=== PATIENT | female | born 1955 | race Caucasian/White ===

== ENCOUNTER 2016-10-09 06:57 | Day surgery (SDC) | payer BC ==
[2016-10-09] MEDS ORDERED: Sodium Chloride 0.9% 20 ML ONE (07:30)
[2016-10-09] MEDS ORDERED: Lidocaine 2% 5 ML SDV ONE (07:30)
[2016-10-09] MEDS ORDERED: Propofol 200 MG/20 ML SDV ONE (07:30)
[2016-10-09] MEDS ORDERED: diphenhydrAMINE 50 MG/ML SDV ONE (07:30)
[2016-10-09] MEDS ORDERED: Midazolam 1 MG/ML 2 ML SDV ONE (07:30)
[2016-10-09] MEDS ORDERED: Bupivacaine 0.25%/EPINEPHrine 1:200,000 10 ML SDV ONE (07:34)
--- NOTE | 2016-10-09 07:51 | PCM.PREANE ---
Preanesthetic Assessment - Anesthesia/Transfusion/Family Hx Anesthesia History: No Prior Anesthesia Family History of Anesthesia Reaction: No Transfusion History: No Prior Transfusion(s) Intubation History: Unknown - Review of Systems General: No Symptoms Pulmonary: No Symptoms Cardiovascular: No Symptoms Gastrointestinal: No symptoms Neurological: No Symptoms Other: Reports: None - Physical Assessment O2 Sat by Pulse Oximetry: 10 Respiratory Rate: 16 Vital Signs: Last Vital Signs Temp 36.2 C 10/09/16 07:12 Pulse 63 10/09/16 07:12 Resp 16 10/09/16 07:12 BP 125/78 10/09/16 07:12 Pulse Ox 10 L 10/09/16 07:12 Height: 1.6 m Weight: 56.699 kg ASA Class: 2 Mental Status: Alert & Oriented x3 Airway Class: Mallampati = 2 Dentition: Reports: Normal Dentition, Bridge (left upper (back) recently broken and removed) Thyro-Mental Finger Breadths: 3 Mouth Opening Finger Breadths: 3 ROM/Head Extension: Full Lungs: Clear to auscultation, Normal respiratory effort Cardiovascular: Regular Rate, Regular Rhythm - Allergies Allergies/Adverse Reactions: Allergies Allergy/AdvReac Type Severity Reaction Status Date / Time No Known Allergies Allergy Verified 10/07/16 14:01 - Blood Blood Available: No - Anesthesia Plan Pre-Op Medication Ordered: None - Acknowledgements Anesthesia Type Planned: MAC Pt an Appropriate Candidate for the Planned Anesthesia: Yes Alternatives and Risks of Anesthesia Discussed w Pt/Guardian: Yes Pt/Guardian Understands and Agrees with Anesthesia Plan: Yes PreAnesthesia Questionnaire HEENT History: Reports: Other (See Below) Other HEENT History: wears glasses 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: Neurological History: Reports: Migraines Other Neuro History: migraines 30 yrs ago Endocrine/Metabolic History: Reports: Hypothyroidism - Past Surgical History Head Surgeries/Procedures: Reports: None HEENT Surgical History: Reports: Naso-Sinus Surgery Other HEENT Surgeries/Procedures: septoplasty under local in 1977 - SUBSTANCE USE Smoking Status *Q: Never Smoker Recreational Drug Use History: No - HOME MEDS Home Medications: Home Meds Levothyroxine Sodium [Synthroid] 75 mcg PO DAILY 10/07/16 [History] Spironolactone [Aldactone] 50 mg PO DAILY 10/07/16 [History] - CURRENT (IN HOUSE) MEDS Current Meds: Current Medications Hydrocodone Bitart/Acetaminophen ([place] 325-5 Mg) 1 tab PO Q4H PRN PRN Reason: Pain Bupivacaine HCl/Epinephrine Bitart (Marcaine 0.25%/Epinephrine 1:200,000) 10 ml INJECT ONETIME ONE Stop: 10/09/16 08:01 Lactated Ringer's (Ringers, Lactated) 1,000 mls @ 125 mls/hr IV ASDIRECTED TRENT Last Admin: 10/09/16 07:20 Dose: 125 mls/hr Cefazolin Sodium/Dextrose 2 gm (/ Premix) 50 mls @ 100 mls/hr IV ONETIME ONE Stop: 10/09/16 08:29 Discontinued Medications Bupivacaine HCl/Epinephrine Bitart (Marcaine 0.25%/Epinephrine 1:200,000) Confirm Administered Dose 20 ml .ROUTE .STK-MED ONE Stop: 10/09/16 07:35 Diphenhydramine HCl (Benadryl) Confirm Administered Dose 50 mg .ROUTE .STK-MED ONE Stop: 10/09/16 07:31 Sodium Chloride (Normal Saline) Confirm Administered Dose 20 mls @ as directed .ROUTE .STK-MED ONE Stop: 10/09/16 07:31 Lidocaine (Xylocaine-Mpf 2%) Confirm Administered Dose 5 ml .ROUTE .STK-MED ONE Stop: 10/09/16 07:31 Midazolam HCl (Versed 1 Mg/Ml) Confirm Administered Dose 2 mg .ROUTE .STK-MED ONE Stop: 10/09/16 07:31 Propofol (Diprivan 20 Ml) Confirm Administered Dose 200 mg .ROUTE .STK-MED ONE Stop: 10/09/16 07:31 Sufentanil Citrate (Sufentanil Citrate) Confirm Administered Dose 50 mcg .ROUTE .STK-MED ONE Stop: 10/09/16 07:35
[2016-10-09] MEDS ORDERED: Bupivacaine 0.25%/EPINEPHrine 1:200,000 10 ML SDV INJECT ONE (08:00)
[2016-10-09] MEDS ORDERED: ceFAZolin 2 GM in Premix Bag 1 BAG IV ONE (08:00)
[2016-10-09] MEDS ORDERED: Acetaminophen/HYDROcodone 325-5 MG Tab PO PRN (08:00)
[2016-10-09] MEDS ORDERED: Lactated Ringers 1,000 ML IV SCH (08:00)
[2016-10-09] MEDS ORDERED: Ondansetron 4 MG/2 ML SDV ONE (08:53)
[2016-10-09] MEDS ORDERED: Dexamethasone 4 MG/ML 5 ML MDV ONE (09:00)
[2016-10-09] MEDS ORDERED: Ketorolac 30 MG/ML SDV ONE (09:01)
--- NOTE | 2016-10-09 10:17 | PCM48HPAN ---
Post Anesthesia Note - EVALUATION WITHIN 48HRS OF ANESTHETIC Vital Signs in Normal Range: Yes Patient Participated in Evaluation: Yes Respiratory Function Stable: Yes Airway Patent: Yes Cardiovascular Function Stable: Yes Hydration Status Stable: Yes Pain Control Satisfactory: Yes Nausea and Vomiting Control Satisfactory: Yes Mental Status Recovered: Yes - COMMENTS/OBSERVATIONS Free Text/Narrative:: no anesthesia problems. Patient skipped recovery room phase of postoperative care
[2016-10-09 10:34] VITALS: BP 102/69
--- NOTE | 2016-10-12 12:22 | PCM.OPNOTE ---
- General Post-Op/Procedure Note Date of Surgery/Procedure: 10/12/16 Operative Procedure(s): excision of right small finger ganglion and intermediate repair of revision of forehead scar 4cm Pre Op Diagnosis: right small finger ganglion and forehead scar Post-Op Diagnosis: Same Anesthesia Technique: Local, MAC Primary Surgeon: Kim Puga Iron Piler: Karla Noel Complications: None Condition: Good
--- NOTE | 2016-10-12 20:28 | OR ---
SURGEON: MAURO SERRANO MD DATE OF PROCEDURE: 10/09/2016 PREOPERATIVE DIAGNOSES: Right small finger ganglion cyst at the PIP joint and scar of the forehead. POSTOPERATIVE DIAGNOSES: Right small finger ganglion cyst at the PIP joint and scar of the forehead. PROCEDURE: 1. Excision of right small finger ganglion cyst at the PIP joint. 2. Scar revision, intermediate repair 4 cm face. KOSHER BUTCHER: Karla Noel. INDICATIONS: Ms. Hassan is a 61-year-old female seen today for scar of her forehead and right small finger ganglion. Risks and benefits of excision and revision of the scar were discussed with her and she was in agreement to proceed. Risks were including, but not limited to, bleeding, infection, damage to underlying or overlying structures, possible need for future interventions, and possible scarring. PROCEDURE IN DETAILS: After informed consent was obtained and placed on the chart, the patient was brought to the operating theater and laid in the supine position. After adequate local MAC anesthetic was obtained, the area was prepped and draped in normal fashion. A time-out was completed to confirm side and site. Attention was then paid to excision of the right small finger ganglion cyst under local tourniquet. Dissection was carried down to the PIP joint and the cyst was removed en bloc. This was sent for pathology. Attention was then paid to rongeuring of the bony prominences causing the ganglion formation. Once this was smoothed, attention was paid to closure using a single deep 4-0 Monocryl stitch and a 5-0 nylon stitch for the skin. This was dressed with a Band-Aid. Attention was then paid to the forehead lesion which was excised and undermined minimally. Deep 4-0 Monocryl stitches and superficial 6-0 Prolene sutures were used to close the skin. This was dressed with Steri-Strips. The patient tolerated this well. All counts and needles were correct at the end the case for a total length of laceration closure of 4 cm. FOLLOWUP INSTRUCTIONS: The patient will see us in 10 to 14 days for suture removal sooner if any problems, questions, or concerns. NGUYỄN / MIRANDA /[id number] ALEXSANDRA
== END 2016-10-09 10:25 | disposition home or self-care (01) ==
LOC: MW.SDS 06:57
PROVIDERS: ATTEND Plastic Surgery
DX: M67.441 Ganglion, right hand (principal); L90.5 Scar conditions and fibrosis of skin; E03.9 Hypothyroidism, unspecified; Z79.899 Other long term (current) drug therapy
CPT/HCPCS: 11444; 12052; 26160; 88304; J0690; J1100; J1200; J1885; J2250; J2405; J7120; 00300; J2704

== ENCOUNTER 2018-07-22 07:00 | Day surgery (SDC) | payer BC ==
[~2018-07-22 07:00] MED LIST: Lactated Ringers 1,000 ML IV SCH; ceFAZolin 1 GM in Premix Bag 1 BAG IV ONE
[2018-07-22] MEDS ORDERED: Midazolam 1 MG/ML 2 ML SDV ONE (07:18)
[2018-07-22] MEDS ORDERED: Propofol 200 MG/20 ML SDV ONE (07:18)
[2018-07-22] MEDS ORDERED: Lidocaine 2% 5 ML SDV ONE (07:18)
[2018-07-22] MEDS ORDERED: fentaNYL 100 MCG/2 ML SDV ONE (07:18)
[2018-07-22] MEDS ORDERED: Bupivacaine 0.25%/EPINEPHrine 1:200,000 10 ML SDV ONE (07:23)
--- NOTE | 2018-07-22 07:26 | PCM.PREANE ---
Preanesthetic Assessment - Anesthesia/Transfusion/Family Hx Anesthesia History: Prior Anesthesia Without Reaction Family History of Anesthesia Reaction: No Transfusion History: No Prior Transfusion(s) Intubation History: Unknown - Review of Systems General: No Symptoms Pulmonary: No Symptoms Cardiovascular: No Symptoms Gastrointestinal: No Symptoms Neurological: No Symptoms Other: Reports: None - Physical Assessment NPO Status Date: 07/21/18 O2 Sat by Pulse Oximetry: 99 Respiratory Rate: 16 Vital Signs: Last Vital Signs Temp 97.0 F 07/22/18 07:18 Pulse 66 07/22/18 07:18 Resp 16 07/22/18 07:18 BP 120/58 L 07/22/18 07:18 Pulse Ox 99 07/22/18 07:18 Height: 5 ft 3 in Weight: 60.781 kg ASA Class: 2 Mental Status: Alert & Oriented x3 Airway Class: Mallampati = 1 Dentition: Reports: Implants (loose crown on an implant L mandibular lateral) ROM/Head Extension: Full Lungs: Clear to Auscultation, Normal Respiratory Effort Cardiovascular: Regular Rate, Regular Rhythm - Allergies Allergies/Adverse Reactions: Allergies Allergy/AdvReac Type Severity Reaction Status Date / Time No Known Allergies Allergy Verified 07/21/18 11:38 - Blood Blood Available: No - Anesthesia Plan Pre-Op Medication Ordered: None - Acknowledgements Anesthesia Type Planned: MAC Pt an Appropriate Candidate for the Planned Anesthesia: Yes Alternatives and Risks of Anesthesia Discussed w Pt/Guardian: Yes Pt/Guardian Understands and Agrees with Anesthesia Plan: Yes PreAnesthesia Questionnaire HEENT History: Reports: Other (See Below) Other HEENT History: wears glasses Cardiovascular History: Reports: None Respiratory History: Reports: None Gastrointestinal History: Reports: None Genitourinary History: Reports: None 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: Musculoskeletal History: Reports: Fracture Other Musculoskeletal History: fx bone in left hand in 2013 Neurological History: Reports: Migraines Psychiatric History: Reports: None Endocrine/Metabolic History: Reports: Hypothyroidism Hematologic History: Reports: None Immunologic History: Reports: None Oncologic (Cancer) History: Reports: None Dermatologic History: Reports: None - Past Surgical History Head Surgeries/Procedures: Reports: None HEENT Surgical History: Reports: Naso-Sinus Surgery Other HEENT Surgeries/Procedures: septoplasty under local in 1977 Cardiovascular Surgical History: Reports: None Respiratory Surgical History: Reports: None GI Surgical History: Reports: None Female Surgical History: Reports: Breast Biopsy Endocrine Surgical History: Reports: None Neurological Surgical History: Reports: None Musculoskeletal Surgical History: Reports: Other (See Below) Other Musculoskeletal Surgeries/Procedures:: surgery on rt pinky finger Oncologic Surgical History: Reports: Biopsy of Breast Dermatological Surgical History: Reports: Other (See Below) - SUBSTANCE USE Smoking Status *Q: Never Smoker Recreational Drug Use History: No - HOME MEDS Home Medications: Home Meds Levothyroxine Sodium [Synthroid] 75 mcg PO BEDTIME 10/07/16 [History] - CURRENT (IN HOUSE) MEDS Current Meds: Current Medications Bupivacaine HCl/Epinephrine Bitart (Marcaine 0.25%/Epinephrine 1:200,000) 10 ml INJECT ONETIME ONE Stop: 07/22/18 08:01 Lactated Ringer's (Ringers, Lactated) 1,000 mls @ 125 mls/hr IV ASDIRECTED TRENT Last Admin: 07/22/18 07:25 Dose: 125 mls/hr Discontinued Medications Fentanyl (Sublimaze) Confirm Administered Dose 100 mcg .ROUTE .STK-MED ONE Stop: 07/22/18 07:19 Cefazolin Sodium/Dextrose 1 gm (/ Premix) 50 mls @ 100 mls/hr IV ONETIME ONE Stop: 07/21/18 23:03 Lidocaine (Xylocaine-Mpf 2%) Confirm Administered Dose 5 ml .ROUTE .STK-MED ONE Stop: 07/22/18 07:19 Midazolam HCl (Versed 1 Mg/Ml) Confirm Administered Dose 2 mg .ROUTE .STK-MED ONE Stop: 07/22/18 07:19 Propofol (Diprivan 20 Ml) Confirm Administered Dose 200 mg .ROUTE .STK-MED ONE Stop: 07/22/18 07:19
[2018-07-22] MEDS ORDERED: Bupivacaine 0.25%/EPINEPHrine 1:200,000 10 ML SDV INJECT ONE (08:00)
[2018-07-22] MEDS ORDERED: Ondansetron 4 MG/2 ML SDV ONE (08:40)
--- NOTE | 2018-07-22 09:24 | PCM48HPAN ---
Post Anesthesia Note - EVALUATION WITHIN 48HRS OF ANESTHETIC Vital Signs in Normal Range: Yes Patient Participated in Evaluation: Yes Respiratory Function Stable: Yes Airway Patent: Yes Cardiovascular Function Stable: Yes Hydration Status Stable: Yes Pain Control Satisfactory: Yes Nausea and Vomiting Control Satisfactory: Yes Mental Status Recovered: Yes Resp Rate: 16
[2018-07-22 09:37] VITALS: BP 108/54
--- NOTE | 2018-07-22 16:02 | PCM.OPNOTE ---
- General Post-Op/Procedure Note Date of Surgery/Procedure: 07/22/18 Operative Procedure(s): excision of left middle finger distal interphalangeal joint ganglion Pre Op Diagnosis: left middle finger joint ganglion Post-Op Diagnosis: Same Anesthesia Technique: Local, MAC Primary Surgeon: Kim Puga Sausage Smoker: Karla Noel Complications: None Condition: Good
--- NOTE | 2018-07-25 01:11 | OR ---
SURGEON: KIM PUGA MD DATE OF PROCEDURE: 07/22/2018 PREOPERATIVE DIAGNOSIS: Left middle finger joint ganglion at the DIP joint. POSTOPERATIVE DIAGNOSIS: Left middle finger joint ganglion at the DIP joint. PROCEDURE: Excision of left middle finger distal interphalangeal joint ganglion. PRIMARY SURGEON: Kim Puga MD TURKEY CLEANER: HAO Negro ANESTHESIA: Local with MAC. REASON FOR AND ROLE OF TURKEY CLEANER: Retraction, prepping, draping, positioning and closure assistance. INDICATIONS: Ms. Hassan is a 62-year-old female seen in evaluation for left middle finger distal interphalangeal joint ganglion that has ruptured through the skin and caused chronic inflammation. Risks and benefits of removal were discussed with her including, but not limited to, bleeding, infection, damage to underlying or overlying structures, possible need for future interventions, and possible scarring. PROCEDURE IN DETAIL: After informed consent was obtained and placed on the chart, the patient was brought to the operating theater and laid in the supine position. After adequate local MAC anesthesia was obtained, the arm was exsanguinated, and the tourniquet was insufflated to 200 mmHg after a time-out had been completed to confirm side and site. Attention was paid to an elliptical incision greater on the open area. Dissection was then carried down in an inverted L-type fashion down to the distal interphalangeal joint. Care was taken to protect the extensor tendon mechanism, and the lateral aspect of the joint was entered. The ganglion itself was dissected and tracked down to its joint insertion, and the area there was then rongeured for any free floating bone changes. Once this was completed, the area was copiously irrigated, and the lateral aspect of the joint was reapproximated using a 4-0 Monocryl stitch in an interrupted fashion. The skin was then closed using 5-0 chromic in an interrupted fashion. The wound was dressed with Xeroform, fluffs, and a Kerlix gauze dressing. The patient tolerated this well. All counts and needles were correct at the end of the case. FOLLOWUP INSTRUCTIONS: The patient will see us in clinic in approximately 10 days or sooner if there are any problems, questions, or concerns. HEGGTHE / MODL /[id number] MTDD
== END 2018-07-22 09:51 | disposition home or self-care (01) ==
LOC: MW.SDS 07:00
PROVIDERS: ATTEND Plastic Surgery
DX: M67.442 Ganglion, left hand (principal); E03.9 Hypothyroidism, unspecified; Z79.899 Other long term (current) drug therapy
CPT/HCPCS: J0690; J2001; J2250; J2405; J2704; J3010; J3490; J7120

== ENCOUNTER 2020-01-01 06:39 | Day surgery (SDC) | payer BC ==
[2019-12-31 17:36] LABS: CARBON DIOXIDE,CO2 27.1 mmol/L (21.0-32.0); POTASSIUM,K 4.2 mmol/L (3.5-5.1)
[2020-01-01] MEDS ORDERED: Bupivacaine 0.25% 10 ML SDV ONE (07:19)
--- NOTE | 2020-01-01 07:20 | PCM.PREANE ---
Preanesthetic Assessment - Anesthesia/Transfusion/Family Hx Anesthesia History: Prior Anesthesia Without Reaction Transfusion History: No Prior Transfusion(s) Intubation History: Unknown - Review of Systems General: No Symptoms Pulmonary: No Symptoms Cardiovascular: No Symptoms Gastrointestinal: No Symptoms Neurological: No Symptoms Other: Reports: None - Physical Assessment Vital Signs: Last Vital Signs Temp 97.5 F 01/01/20 06:56 Pulse 71 01/01/20 06:56 Resp 14 01/01/20 06:56 BP 109/58 L 01/01/20 06:56 Pulse Ox 98 01/01/20 06:56 Height: 5 ft 2.5 in Weight: 64.41 kg ASA Class: 2 Mental Status: Alert & Oriented x3 Airway Class: Mallampati = 1 Dentition: Reports: Bridge (Missing), Missing Tooth/Teeth Thyro-Mental Finger Breadths: 2 Mouth Opening Finger Breadths: 3 ROM/Head Extension: Full Lungs: Clear to Auscultation, Normal Respiratory Effort Cardiovascular: Regular Rate, Regular Rhythm - Lab Values: Laboratory Last Values WBC 8.87 K/uL (4.0-11.0) 12/31/19 16:35 RBC 4.65 M/uL (4.30-5.90) 12/31/19 16:35 Hgb 14.5 g/dL (12.0-16.0) 12/31/19 16:35 Hct 44.4 % (36.0-46.0) 12/31/19 16:35 MCV 95.5 fL (80.0-98.0) 12/31/19 16:35 MCH 31.2 pg (27.0-32.0) 12/31/19 16:35 MCHC 32.7 g/dL (31.0-37.0) 12/31/19 16:35 RDW Std Deviation 44.0 fl (28.0-62.0) 12/31/19 16:35 RDW Coeff of Sarah Beth 13 % (11.0-15.0) 12/31/19 16:35 Plt Count 274 K/uL (150-400) 12/31/19 16:35 MPV 10.70 fL (7.40-12.00) 12/31/19 16:35 Nucleated RBC % 0.0 /100WBC 12/31/19 16:35 Nucleated RBCs # 0 K/uL 12/31/19 16:35 Sodium 138 mmol/L (136-145) 12/31/19 16:35 Potassium 4.2 mmol/L (3.5-5.1) 12/31/19 16:35 Chloride 103 mmol/L (98-107) 12/31/19 16:35 Carbon Dioxide 27.1 mmol/L (21.0-32.0) 12/31/19 16:35 BUN 26 mg/dL (7.0-18.0) H 12/31/19 16:35 Creatinine 1.0 mg/dL (0.6-1.0) 12/31/19 16:35 Est Cr Clr Drug Dosing 45.38 mL/min 12/31/19 16:35 Estimated GFR (MDRD) 55.6 ml/min 12/31/19 16:35 Glucose 86 mg/dL (74-106) 12/31/19 16:35 Calcium 9.3 mg/dL (8.5-10.1) 12/31/19 16:35 TSH 3rd Generation 2.90 uIU/mL (0.36-3.74) 12/31/19 16:35 Blood Type O POSITIVE 12/31/19 16:49 Antibody Screen NEGATIVE 12/31/19 16:49 - Allergies Allergies/Adverse Reactions: Allergies Allergy/AdvReac Type Severity Reaction Status Date / Time No Known Allergies Allergy Verified 12/29/19 10:40 - Acknowledgements Anesthesia Type Planned: General Anesthesia Pt an Appropriate Candidate for the Planned Anesthesia: Yes Alternatives and Risks of Anesthesia Discussed w Pt/Guardian: Yes Pt/Guardian Understands and Agrees with Anesthesia Plan: Yes PreAnesthesia Questionnaire HEENT History: Reports: Other (See Below) Other HEENT History: wears glasses Cardiovascular History: Reports: None Respiratory History: Reports: None Gastrointestinal History: Reports: GERD (Occ) Genitourinary History: Reports: None 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: , Spontaneous Musculoskeletal History: Reports: Fracture Other Musculoskeletal History: fx bone in left hand in 2013 Neurological History: Reports: Migraines Psychiatric History: Reports: None Endocrine/Metabolic History: Reports: Hypothyroidism Hematologic History: Reports: None Immunologic History: Reports: None Oncologic (Cancer) History: Reports: None Dermatologic History: Reports: None - Infectious Disease History Infectious Disease History: Reports: None - Past Surgical History Head Surgeries/Procedures: Reports: None HEENT Surgical History: Reports: Naso-Sinus Surgery Other HEENT Surgeries/Procedures: septoplasty under local in 1977 Cardiovascular Surgical History: Reports: None Respiratory Surgical History: Reports: None GI Surgical History: Reports: None Female Surgical History: Reports: Breast Biopsy, D&C Other Female Surgeries/Procedures: breast bx x2 Endocrine Surgical History: Reports: None Neurological Surgical History: Reports: None Musculoskeletal Surgical History: Reports: Other (See Below) Other Musculoskeletal Surgeries/Procedures:: exc ganglion cyst -lt hand Oncologic Surgical History: Reports: Biopsy of Breast Dermatological Surgical History: Reports: Other (See Below) - SUBSTANCE USE Smoking Status *Q: Never Smoker Tobacco Use Within Last Twelve Months: No Second Hand Smoke Exposure: No Recreational Drug Use History: No - HOME MEDS Home Medications: Home Meds Levothyroxine Sodium [Synthroid] 75 mcg PO BEDTIME 10/07/16 [History] Liothyronine [Cytomel] 5 mcg PO DAILY 12/29/19 [History] Minocycline [Minocin] 50 mg PO DAILY 12/29/19 [History]
[2020-01-01] MEDS ORDERED: Propofol 200 MG/20 ML SDV ONE (07:32)
[2020-01-01] MEDS ORDERED: fentaNYL 250 MCG/5 ML SDV ONE (07:32)
[2020-01-01] MEDS ORDERED: Lidocaine 2% 5 ML SDV ONE (07:34)
[2020-01-01] MEDS ORDERED: Dexamethasone 4 MG/ML 5 ML MDV ONE (07:34)
[2020-01-01] MEDS ORDERED: Rocuronium Bromide 50 MG/5 ML Syringe ONE (07:34)
[2020-01-01] MEDS ORDERED: Ondansetron 4 MG/2 ML SDV ONE (07:34)
[2020-01-01] MEDS ORDERED: Sugammadex Sodium 200 MG/2 ML VIAL ONE (07:40)
[2020-01-01] MEDS ORDERED: 50% Dextrose in Water 50 ML Syringe IVPUSH PRN (09:01)
[2020-01-01] MEDS ORDERED: Naloxone 0.4 MG/ML Syringe IVPUSH PRN (09:01)
[2020-01-01] MEDS ORDERED: fentaNYL 100 MCG/2 ML SDV IVPUSH PRN (09:01)
[2020-01-01] MEDS ORDERED: Atropine 0.1 MG/ML 10 ML Syringe IVPUSH PRN ×2 (09:01)
[2020-01-01] MEDS ORDERED: Ketorolac 30 MG/ML SDV ONE (09:01)
[2020-01-01] MEDS ORDERED: Albuterol 0.083% 2.5 MG/3 ML Neb Soln NEB PRN (09:01)
[2020-01-01] MEDS ORDERED: EPINEPHrine 1:10,000 1 MG/10 ML Syringe IVPUSH PRN (09:01)
--- NOTE | 2020-01-01 09:12 | PCM.OPNOTE ---
- General Post-Op/Procedure Note Date of Surgery/Procedure: 01/01/20 Operative Procedure(s): Bilateral salpingetomy and oophorectomy, pelvic washings Findings: RUQ adhesions, nelly-appendiceal adhesions with normal appearing appendix, normal appearing pelvis Pre Op Diagnosis: Family history of ovarian cancer, high personal risk of ovarian cancer with recommended oophorectomy Post-Op Diagnosis: Family history of ovarian cancer, high personal risk of ovarian cancer with recommended oophorectomy Anesthesia Technique: General ET Tube Primary Surgeon: Sandy Jean Anesthesia Provider: Briseyda Coffman Senior Microstrategy Developer: Rhonda Bourgeois ([email or web address]) Pathology: Bilateral fallopian tubes and ovaries, pelvic washings sent to pathology Fluid Replacement, Intraop: 900 EBL in mLs: 10 Complications: None known Condition: Stable
--- NOTE | 2020-01-01 09:49 | PCM.POSTAN ---
POST ANESTHESIA ASSESSMENT - MENTAL STATUS Mental Status: Alert, Oriented - VITAL SIGNS Vital Signs: Last Vital Signs Temp 97.5 F 01/01/20 06:56 Pulse 55 L 01/01/20 09:43 Resp 12 01/01/20 09:43 BP 98/50 L 01/01/20 09:43 Pulse Ox 100 01/01/20 09:43 - RESPIRATORY Respiratory Status: Respiratory Rate WNL, Airway Patent, O2 Saturation Stable - CARDIOVASCULAR CV Status: Pulse Rate WNL - GASTROINTESTINAL GI Status: No Symptoms - POST OP HYDRATION Hydration Status: Adequate & Stable - OBSERVATIONS Free Text/Narrative:: pain improved after 50 mcg in pacu, no nausea. OK for transfer to phase 2
--- NOTE | 2020-01-01 10:53 | PCM48HPAN ---
Post Anesthesia Note - EVALUATION WITHIN 48HRS OF ANESTHETIC Vital Signs in Normal Range: Yes Patient Participated in Evaluation: Yes Respiratory Function Stable: Yes Airway Patent: Yes Cardiovascular Function Stable: Yes Hydration Status Stable: Yes Pain Control Satisfactory: Yes Nausea and Vomiting Control Satisfactory: Yes Mental Status Recovered: Yes Vital Signs: Last Vital Signs Temp 97.2 F 01/01/20 09:50 Pulse 53 L 01/01/20 09:50 Resp 14 01/01/20 09:50 BP 115/59 L 01/01/20 09:50 Pulse Ox 97 01/01/20 09:50
[2020-01-01 11:11] VITALS: BP 120/62; PULSE 58
--- NOTE | 2020-01-01 15:26 | OR ---
SURGEON: Sandy Jean M.D. DATE OF PROCEDURE: 01/01/2020 PREOPERATIVE DIAGNOSIS: Family history of ovarian cancer, high personal risk of ovarian cancer, with recommended salpingo-oophorectomy. POSTOPERATIVE DIAGNOSIS: Family history of ovarian cancer, high personal risk of ovarian cancer, with recommended salpingo-oophorectomy. PROCEDURE: Laparoscopic bilateral salpingo-oophorectomy with pelvic washings. PRIMARY SURGEON: Sandy Jean M.D. WINDOWS SYSTEMS ENGINEER: Yudith Bourgeois MS-4. ANESTHESIA: General endotracheal. FLUIDS: 900 mL of crystalloid. ESTIMATED BLOOD LOSS: 10 mL. FINDINGS: Normal-appearing uterus, tubes, and ovaries. There were some periappendiceal adhesions; however, the appendix itself appeared normal. There were adhesions in the right upper quadrant adjacent to the gallbladder. The gallbladder itself was visible and appeared normal. PATHOLOGY SPECIMENS: Pelvic washings, right and left tube and ovary. COMPLICATIONS: None known. DISPOSITION: Stable, to Recovery. BRIEF HISTORY: This is a 64-year-old female. She has an extensive family history of both breast and ovarian cancer. After genetic counseling, it was recommended that she proceed with bilateral salpingo-oophorectomy for prevention of ovarian cancer with risks discussed including bleeding; infection; injury to bowel, bladder, blood vessels, or other organs; risk of thromboembolic event; and risk of anesthesia. Understanding all these risks, she does desire to proceed. DESCRIPTION OF PROCEDURE: With the patient in dorsal lithotomy position, under adequate general endotracheal anesthesia, the abdomen was prepped with chlorhexidine. The perineum and vagina were prepped with Betadine and draped in the usual fashion for a laparoscopic surgery. The bladder had been drained with a straight catheter. SCDs were in place. An appropriate time-out was held. Bimanual examination revealed a midposition uterus less than 6 weeks' size. Speculum was placed in the vagina. A Hulka tenaculum was placed on the cervix. The speculum was removed from the vagina. Prime Minister's gloves were changed. Attention was then turned abdominally where 3 mL of 0.25% Marcaine was injected inferior to the umbilicus. A 10 mm incision was made with a scalpel. Veress needle was inserted. Opening pressure was 6 mmHg. CO2 was insufflated to develop an adequate pneumoperitoneum of 15 mmHg. A 10 mm port was placed without any difficulty. Laparoscope was placed into the abdominal cavity, and there was no evidence of any trauma from the port placement site. The uterus was elevated. Tubes and ovaries were identified. Two additional ports were placed 2 cm medial and cephalad from the anterior-superior iliac spine on the right and the left under direct visualization without any difficulty. The pelvis was inspected as well as the abdomen with findings as noted above. The pelvis was copiously irrigated with normal saline, and this was collected for pelvic washings. The ureters were identified bilaterally and the medial leaf of the broad ligament. They were well below the level of the infundibulopelvic ligament. The left tube and ovary were grasped. The infundibulopelvic ligament was cross-clamped using LigaSure, doubly ligated and cut, and then proceeding proximally along the mesosalpinx to the cornu of the uterus where the tube was transected using the LigaSure and released. This was placed in the anterior cul-de-sac. This was repeated on the opposite side without any difficulty. The specimens were then removed using an EndoCatch bag. The pelvis was then copiously irrigated and inspected, and there were no areas of bleeding under high or low pressure. Therefore, the instruments were removed, and the abdomen was desufflated. The ports were removed. The fascia was reapproximated inferior to the umbilicus using 0 Polysorb. The skin was closed with subcuticular suture of 3-0 Monocryl. The Hulka tenaculum was removed from the cervix. The cervix was inspected and was hemostatic. Final sponge, needle, and instrument counts were reported as correct. There were no known complications. The patient was transferred to Recovery in good condition. FIONA JEAN /[id number] ALEXSANDRA
== END 2020-01-01 12:11 | disposition home or self-care (01) ==
LOC: MW.SDS 06:39
PROVIDERS: ATTEND Obstetrics & Gynecology
DX: Z40.02 Encounter for prophylactic removal of ovary(s) (principal); E03.9 Hypothyroidism, unspecified; Z80.41 Family history of malignant neoplasm of ovary; Z80.3 Family history of malignant neoplasm of breast; Z98.890 Other specified postprocedural states
CPT/HCPCS: 36415; 58661; 80048; 84443; 85027; 86850; 86900; 86901; 88305; 88311; J1100; J1885; J2001; J2405; J2704; J3010; J3490; 00840